=== PATIENT | female | born 1995 | race Caucasian/White ===

== ENCOUNTER 2019-04-11 12:37 | Emergency (ER) | payer OTHER ==
[2019-04-11 13:12] VITALS: BP 122/87
--- NOTE | 2019-04-11 13:18 | UC ---
Complaint Female HPI - HPI Summary HPI Summary: 24-year-old female presents with 3 day history of dysuria, frequency, and urgency. States this morning she started noticing some blood in her urine as well. Associated with some suprapubic discomfort. Denies fever, chills, back or flank pain, vaginal discharge, vaginal itching, dyspareunia, nausea, or vomiting. - History Of Current Complaint Chief Complaint: UCGU Stated Complaint: URINARY Time Seen by Provider: 04/11/19 13:07 Hx Obtained From: Patient Hx Last Menstrual Period: 04/01/19 Pain Intensity: 4 - Allergies/Home Medications Allergies/Adverse Reactions: Allergies Allergy/AdvReac Type Severity Reaction Status Date / Time No Known Allergies Allergy Verified 04/11/19 13:09 PMH/Surg Hx/FS Hx/Imm Hx Previously Healthy: Yes - Denies significant PMH - Surgical History Surgical History: None - Family History Known Family History: Positive: Non-Contributory - Social History Occupation: Student Lives: Dormitory/Roommates Alcohol Use: Occasionally Substance Use Type: None Smoking Status (MU): Never Smoked Tobacco Review of Systems All Other Systems Reviewed And Are Negative: Yes Constitutional: Negative: Fever, Chills Respiratory: Positive: Negative Cardiovascular: Positive: Negative Gastrointestinal: Positive: Abdominal Pain - Suprapubic. Negative: Vomiting, Diarrhea, Nausea Genitourinary: Positive: Dysuria, Hematuria, Frequency, Urgency. Negative: Vaginal/Penile Burning, Vaginal/Penile Itching, Vaginal/Penile Discharge, Ulceration/Lesion Musculoskeletal: Positive: Negative Neurological: Positive: Negative Is Patient Immunocompromised?: No Physical Exam - Summary Physical Exam Summary: GENERAL APPEARANCE: Well developed, well nourished, alert and cooperative, and appears to be in no acute distress. CARDIAC: Normal S1 and S2. No S3, S4 or murmurs. Rhythm is regular. There is no peripheral edema, cyanosis or pallor. Extremities are warm and well perfused. Capillary refill is less than 2 seconds. Peripheral pulses intact. LUNGS: Clear to auscultation without rales, rhonchi, wheezing or diminished breath sounds. ABDOMEN: Positive bowel sounds. Soft, nondistended, nontender. No guarding or rebound. No masses or hepatosplenomegally. No CVA tenderness. MUSKULOSKELETAL: ROM intact to all extremities. No joint erythema or tenderness. Normal muscular development. Normal gait. SKIN: Skin normal color, texture and turgor with no lesions or eruptions. Triage Information Reviewed: Yes Vital Signs: Initial Vital Signs Temp 98 F 04/11/19 13:09 Pulse 72 04/11/19 13:09 Resp 14 04/11/19 13:09 BP 122/87 04/11/19 13:09 Pulse Ox 100 04/11/19 13:09 Vital Signs Reviewed: Yes Complaint Female Dx - Course Course Of Treatment: 24-year-old female presents with 3 day history of dysuria, frequency, and urgency. States this morning she started noticing some blood in her urine as well. Associated with some suprapubic discomfort. Denies fever, chills, back or flank pain, vaginal discharge, vaginal itching, dyspareunia, nausea, or vomiting. Afebrile. Vital signs stable. Exam was overall unremarkable. Point -of-care urinalysis showed 3+ protein, trace ketones, 3+ blood, positive nitrites, and 1+ leukocyte esterase. Urine culture is pending. We'll treat her empirically for urinary tract infection with Bactrim DS 1 tablet twice a day 5 days and provided her with Pyridium 100 mg 3 times a day 2 days for the discomfort. She is to return here or follow-up with a primary care provider in 3-5 days if symptoms do not improve. Anticipatory guidance and warning symptoms were reviewed with the patient. Verbalizes understanding and agrees with plan of care. - Differential Dx/Diagnosis Differential Diagnosis/HQI/PQRI: Pelvic Inflammatory Disease, , Sexually Transmitted Disease, Urinary Tract Infection Provider Diagnosis: UTI (urinary tract infection) Discharge - Sign-Out/Discharge Documenting (check all that apply): Patient Departure All imaging exams completed and their final reports reviewed: No Studies - Discharge Plan Condition: Stable Disposition: HOME Prescriptions: Phenazopyridine TAB* [Pyridium 100 mg TAB*] 100 mg PO TID #6 tab Sulfamethox/Trimethoprim DS* [Bactrim DS 800/160 TAB*] 1 tab PO BID #10 tab Patient Education Materials: Urinary Tract Infection in Women (ED) Referrals: No Primary Care Phys,NOPCP [Primary Care Provider] - Additional Instructions: Your urine test in the clinic today is suggestive of a urinary tract infection. We will start you on an antibiotic to treat for the infection. We will also send a urine culture today to see what bacteria grow out and make sure the antibiotic you were prescribed is appropriate to treat the infection. It will take 48-72 hours to get these results. We will contact you if there is any change in your treatment plan. Start Bactrim DS 1 tab twice a day for 5 days. Take Pyridium 1 tablet every 8 hours for next 2 days to help with the discomfort. This medication will turn your urine an orange color. Drink plenty of fluids. To help prevent urinary tract infections: 1) Be sure to wipe from front to back. 2) Urinate immediately after any sexual intercourse. 3) Avoid taking bubble baths. Return here or follow up with your primary care provider in 3-5 days if symptoms persist. Seek immediate medical attention in the emergency room if you develop fever greater than 100.5 F, have severe abdominal pain, persistent vomiting, or any worsening of symptoms. - Billing Disposition and Condition Condition: STABLE Disposition: Home
== END 2019-04-11 13:53 | disposition home or self-care (01) ==
LOC: UCCORT 12:37
DX: N39.0 Urinary tract infection, site not specified (principal)
CPT/HCPCS: 81003; 84702; 87077; 87086; 87186; 99202; G0463